=== PATIENT | male | born 1970 | race Caucasian/White ===

== ENCOUNTER 2017-07-28 20:49 | Inpatient (IN) | payer MEDICAID ==
[~2017-07-28] VITALS: Ht 170.2 cm; Wt 71.0 kg
[2017-07-28] MEDS ORDERED: ASPIRIN 81 MG TAB PO STA (21:13)
[2017-07-28] MEDS ORDERED: NITROGLYCERIN 2% 1 GM OINT PKT TD STA (21:13)
[2017-07-28] MEDS ORDERED: morphine 4 MG/ML VIAL IV STA (21:13)
[2017-07-28] MEDS ORDERED: ONDANSETRON 4 MG INJ IV STA (21:13)
[2017-07-28] MEDS ORDERED: SOD CHLORIDE 0.9% 1,000 ML IV STA (21:13)
[2017-07-28] MEDS ORDERED: NITROGLYCERIN (SL) 0.4 MG TAB SL PRN (21:30)
[2017-07-28] MEDS ORDERED: LORAZEPAM 2 MG INJ IV ONE (21:30)
[2017-07-28 21:47] LABS: BASOPHILS % 0.3 % (0.0-2.0); EOSINOPHILS % 0.3 % (0.0-7.0); HEMATOCRIT 41.9 % (42.0-52.0); HEMOGLOBIN 14.1 g/dl (14.0-18.0); LYMPHOCYTES # 1.4 10^3/ul (0.8-2.9); LYMPHOCYTES % 12.1 % (15.0-51.0); MEAN CORPUSCULAR HEMOGLOBIN 29.1 pg (29.0-33.0); MEAN CORPUSCULAR HGB CONC 33.7 g/dl (32.0-37.0); MEAN CORPUSCULAR VOLUME 86.4 fl (82.0-101.0); MEAN PLATELET VOLUME 9.2 fl (7.4-10.4); MONOCYTE # 0.5 10^3/ul (0.3-0.9); MONOCYTES % 4.6 % (0.0-11.0); NEUTROPHIL # 9.6 10^3/ul (1.6-7.5); NEUTROPHILS % 82.4 % (39.0-77.0); PLATELET COUNT 370 10^3/UL (140-415); RED BLOOD COUNT 4.85 10^6/ul (4.70-6.10); RED CELL DISTRIBUTION WIDTH 12.7 % (11.5-14.5); WHITE BLOOD COUNT 11.7 10^3/ul (4.8-10.8)
[2017-07-28 22:03] LABS: INR 0.84; PARTIAL THROMBOPLASTIN TIME 25.3 Sec (25.0-35.0); PROTIME 11.5 Sec (12.2-14.2); PT RATIO 0.9
[2017-07-28 22:06] LABS: ALANINE AMINOTRANSFERASE 52 IU/L (13-69); ALBUMIN/GLOBULIN RATIO 1.05; ALKALINE PHOSPHATASE 69 IU/L (42-121); ANION GAP 11 (8-16); ASPARTATE AMINO TRANSFERASE 25 IU/L (15-46); BILIRUBIN,INDIRECT 0.2 mg/dl (0-1.1); BILIRUBIN,TOTAL 0.2 mg/dl (0.2-1.3); BLOOD UREA NITROGEN 13 mg/dl (7-20); CALCIUM 9.5 mg/dl (8.4-10.2); CARBON DIOXIDE 26 mmol/L (21-31); CHLORIDE 105 mmol/L (97-110); GLUCOSE 133 mg/dl (70-220); POTASSIUM 4.1 mmol/L (3.5-5.1); SODIUM 138 mmol/L (135-144); TOTAL PROTEIN 7.8 g/dl (6.1-8.1)
[2017-07-28] MEDS ORDERED: SOD CHLORIDE 0.9% 100 ML ONE (22:11)
[2017-07-28] MEDS ORDERED: IOHEXOL 100 ML ONE (22:11)
[2017-07-28 22:18] LABS: TROPONIN-I < 0.012 ng/ml (0.00-0.12)
--- NOTE | 2017-07-28 22:56 | RADRPT ---
PROCEDURE: XR Chest. CLINICAL INDICATION: Chest pain. TECHNIQUE: Single frontal view. COMPARISON: None. FINDINGS: The lungs are clear. The heart size is normal. There is no pleural effusion. There is no pneumothorax. IMPRESSION: 1. Normal chest radiograph. RPTAT: QQ .Davy Kearney MD, Date Time Electronically viewed and signed by .Davy Kearney MD, on 07/28/2017 22:55 .R/
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
[2017-07-29] VITALS (10 sets, daily range): BP systolic 96–119; BP diastolic 54–71; PULSE 63–85; RESP 16–21; Ht 170.2 cm; Wt 71.0 kg
[2017-07-29] MEDS ORDERED: ONDANSETRON 4 MG INJ IV PRN
[2017-07-29] MEDS ORDERED: NACL 0.9% 3 ML SYG IV SCH
[2017-07-29] MEDS ORDERED: morphine 2 MG INJ IV PRN
[2017-07-29] MEDS ORDERED: BISACODYL (EC) 5 MG TAB PO PRN
[2017-07-29] MEDS ORDERED: NITROGLYCERIN (SL) 0.4 MG TAB SL PRN
[2017-07-29] MEDS ORDERED: ACETAMINOPHEN 325 MG TAB PO PRN ×2
[2017-07-29] MEDS ORDERED: DOCUSATE SODIUM 100 MG CAP PO PRN
[2017-07-29] MEDS ORDERED: KETOROLAC 30 MG INJ IV STA (01:36)
[2017-07-29] MEDS: FAMOTIDINE 20 MG TAB PO SCH ×2 (01:41→10:13)
[2017-07-29] MEDS ORDERED: CYCLOBENZAPRINE 10 MG TAB PO ONE (02:00)
[2017-07-29] MEDS ORDERED: AL HYDROX/MG HYDROX/SIMETH 30 ML CUP PO ONE (02:00)
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
[2017-07-29 04:23] LABS: BASOPHILS % 0.3 % (0.0-2.0); EOSINOPHILS # 0.1 10^3/ul (0.0-0.5); EOSINOPHILS % 0.9 % (0.0-7.0); HEMATOCRIT 36.6 % (42.0-52.0); HEMOGLOBIN 11.9 g/dl (14.0-18.0); LYMPHOCYTES # 2.4 10^3/ul (0.8-2.9); LYMPHOCYTES % 25.9 % (15.0-51.0); MEAN CORPUSCULAR HEMOGLOBIN 28.7 pg (29.0-33.0); MEAN CORPUSCULAR HGB CONC 32.5 g/dl (32.0-37.0); MEAN CORPUSCULAR VOLUME 88.4 fl (82.0-101.0); MEAN PLATELET VOLUME 8.9 fl (7.4-10.4); MONOCYTE # 0.7 10^3/ul (0.3-0.9); MONOCYTES % 7.7 % (0.0-11.0); PLATELET COUNT 305 10^3/UL (140-415); RED BLOOD COUNT 4.14 10^6/ul (4.70-6.10); WHITE BLOOD COUNT 9.2 10^3/ul (4.8-10.8)
[2017-07-29 04:50] LABS: ALBUMIN 2.9 g/dl (3.3-4.9); ALBUMIN/GLOBULIN RATIO 0.96; BILIRUBIN,INDIRECT 0.2 mg/dl (0-1.1); BILIRUBIN,TOTAL 0.2 mg/dl (0.2-1.3); CALCIUM 8.7 mg/dl (8.4-10.2); CHOL/HDL RATIO 2.9 RATIO; CREATINE KINASE 57 IU/L (23-200); CREATININE 0.7 mg/dl (0.61-1.24); POTASSIUM 4.1 mmol/L (3.5-5.1); TOTAL PROTEIN 5.9 g/dl (6.1-8.1)
[2017-07-29 05:12] LABS: CK-MB 0.43 ng/ml (0.0-2.4); TROPONIN-I < 0.012 ng/ml (0.00-0.12)
[2017-07-29 05:18] LABS: THYROID STIMULATING HORMONE 0.351 MIU/L (0.465-4.680)
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
[2017-07-29] MEDS ORDERED: KETOROLAC 30 MG INJ IV PRN (11:00)
--- NOTE | 2017-07-29 11:39 | RADRPT ---
Echocardiogram Report Patient Name: RENALDO SCOTT Gender: Male Date: 1970 Study Date: 29-Jul-2017 Medical Records Receptionist: Raulito [facility] Location: [id number] Ref. Physician: MERLE PERDUE Quality: Technically Difficult Study Procedures: Transthoracic echocardiogram with complete 2D, M-Mode, and doppler examination. Indications: Chest Pain. 2D/M Mode Doppler Measurement Value Normal Ranges Measurement Value Normal Ranges LVIDd 2D 4.0 3.5 - 5.6 cm AV Peak Karan 1.3 m/sec LVIDs 2D 2.6 2.1 - 4.1 cm AV Peak PG 7.0 mmHg FS 2D 35.1 % LVOT Peak Karan 1.3 m/sec LVPWd 2D 1.3 0.6 - 1.1 cm LVOT Peak PG 6.0 mmHg IVSd 2D 1.3 0.6 - 1.1 cm MV E Peak Karan 0.7 m/sec IVS/LVPW 2D 1.0 MV A Peak Karan 0.5 m/sec AoR Diam 2D 2.5 2.0 - 3.7 cm MV E/A 1.2 LA/Ao 2D 1 0 - 1 MV Decel Time 155 msec EDV 2D 65.9 cm3 MV E/A 1.2 ESV 2D 18.0 cm3 TR Peak Karan 2.7 m/sec LA Dimen 2D 3.3 2.3 - 4.0 cm TR Peak PG 28.0 mmHg RVSP 36.0 mmHg Findings Left Ventricle: Normal left ventricular systolic function. Normal left ventricular cavity size. Normal left ventricular wall thickness. Ejection fraction is visually estimated at 65 %. Tissue Doppler/Mitral Doppler indices are within normal limits. Right Ventricle: Normal right ventricular size. Normal right ventricular systolic function. Left Atrium: The left atrium is normal in size. Right Atrium: The right atrium is normal in size. Mitral Valve: Normal appearance and function of the mitral valve with trace physiologic regurgitation. Trace mitral regurgitation. Aortic Valve: Normal appearance of the aortic valve. No significant aortic stenosis or insufficiency. Tricuspid Valve: Normal appearance of the tricuspid valve. Estimated peak PA systolic pressure 31 mmHg. There is trace to mild tricuspid regurgitation. Pulmonic Valve: Pulmonic valve not well visualized. There is trace pulmonic regurgitation. Pericardium: Normal pericardium with no significant pericardial effusion. Aorta: Normal aortic root. IVC: Normal size and normal respiratory collapse consistent with normal right atrial pressure. Conclusions 1.Normal size and normal respiratory collapse consistent with normal right atrial pressure. Dilated IVC with respiratory collapse consistent with elevated right atrial pressure. 2.Normal left ventricular systolic function. Normal left ventricular cavity size. Normal left ventricular wall thickness. Ejection fraction is visually estimated at 65 %. Tissue Doppler/Mitral Doppler indices are within normal limits. 3.No significant valvular stenosis or regurgitation seen. 4.Estimated peak PA systolic pressure 31 mmHg based on RA pressure of 3 mmHg. Electronically Signed By: Jadiel Partida 29-Jul-2017 11:38:02 -0700 Patient Name: RENALDO SCOTT Study Date: 29-Jul-2017 [id number]
[2017-07-29 11:40] LABS: CREATINE KINASE 48 IU/L (23-200)
[2017-07-29 12:01] LABS: CK-MB 0.24 ng/ml (0.0-2.4); TROPONIN-I < 0.012 ng/ml (0.00-0.12)
[2017-07-29] MEDS ORDERED: ACET325T40 PO (17:04)
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
--- NOTE | 2017-07-29 17:05 | PDOCDIS ---
Discharge Instructions DIAGNOSIS Discharge Diagnosis costochondritis, pulmonary hypertension, subclinical HYPERthyroid CONDITION Patient Condition: Stable FOLLOW UP/APPOINTMENTS Follow-up Plan PCP tomorrow MALLORY TERESA MD Jul 29, 2017 17:05
== END 2017-07-29 18:45 | disposition home or self-care (01) | DRG 206 ==
LOC: E/R 20:49 → TEL 23:31
PROVIDERS: ADMIT Family Medicine; ATTEND Family Medicine
DX: M94.0 Chondrocostal junction syndrome [Tietze] (principal); I27.20 Pulmonary hypertension, unspecified; N28.1 Cyst of kidney, acquired; D72.829 Elevated white blood cell count, unspecified
CPT/HCPCS: 36415; 71010; 71275; 80053; 80061; 82550; 82553; 83036; 84436; 84439; 84443; 84484; 85025; 85610; 85730; 93005; 93306; 96374; 96375; J1885; J2060; J2270; J2405; J7030; Q9967

== ENCOUNTER 2017-08-21 09:47 | Emergency (ER) | payer MEDICAID ==
[~2017-08-21] VITALS: Wt 71.2 kg
[~2017-08-21 09:47] MED LIST: ACET325T40 PO
[2017-08-21] MEDS ORDERED: ASPIRIN 325 MG TAB PO STA (10:08)
--- NOTE | 2017-08-21 10:29 | RADRPT ---
PROCEDURE: XR Chest. CLINICAL INDICATION: chest pain TECHNIQUE: Single frontal view of the chest was obtained COMPARISON: None FINDINGS: The heart and mediastinum are within normal limits. The lungs are clear. There is no pleural effusion or pneumothorax. RPTAT: AA IMPRESSION: No acute disease. .Chidi Schroeder MD, Date Time Electronically viewed and signed by .Chidi Schroeder MD, MD on 08/21/2017 10:29 .S/
[2017-08-21 10:44] LABS: BASOPHILS % 0.2 % (0.0-2.0); EOSINOPHILS # 0.1 10^3/ul (0.0-0.5); EOSINOPHILS % 0.9 % (0.0-7.0); HEMATOCRIT 42.6 % (42.0-52.0); HEMOGLOBIN 14.4 g/dl (14.0-18.0); LYMPHOCYTES # 1.5 10^3/ul (0.8-2.9); LYMPHOCYTES % 18.6 % (15.0-51.0); MEAN CORPUSCULAR HEMOGLOBIN 28.8 pg (29.0-33.0); MEAN CORPUSCULAR HGB CONC 33.8 g/dl (32.0-37.0); MEAN CORPUSCULAR VOLUME 85.2 fl (82.0-101.0); MONOCYTE # 0.5 10^3/ul (0.3-0.9); MONOCYTES % 6.2 % (0.0-11.0); NEUTROPHIL # 6.1 10^3/ul (1.6-7.5); NEUTROPHILS % 73.7 % (39.0-77.0); PLATELET COUNT 319 10^3/UL (140-415); RED CELL DISTRIBUTION WIDTH 12.4 % (11.5-14.5); WHITE BLOOD COUNT 8.2 10^3/ul (4.8-10.8)
[2017-08-21 11:01] LABS: ANION GAP 13 (8-16); BLOOD UREA NITROGEN 9 mg/dl (7-20); CALCIUM 9.5 mg/dl (8.4-10.2); CARBON DIOXIDE 28 mmol/L (21-31); CHLORIDE 106 mmol/L (97-110); CREATININE 0.76 mg/dl (0.61-1.24); GLUCOSE 120 mg/dl (70-220); POTASSIUM 4.2 mmol/L (3.5-5.1); SODIUM 143 mmol/L (135-144)
[2017-08-21 11:14] LABS: B-TYPE NATRIURETIC PEPTIDE 22 PG/ML (0-125)
[2017-08-21 11:19] LABS: TROPONIN-I < 0.012 ng/ml (0.00-0.12)
[2017-08-21] MEDS ORDERED: SOD CHLORIDE 0.9% 100 ML ONE (11:56)
[2017-08-21] MEDS ORDERED: IOHEXOL 300MG/ML 150 ML BTL ONE (11:56)
--- NOTE | 2017-08-21 12:18 | RADRPT ---
PROCEDURE: CT Chest with contrast. CLINICAL INDICATION: Chest pain and bloody sputum TECHNIQUE: CT scan of the chest with contrast was performed on the [employer] CT scanner. The pat ient was scanned following the uncomplicated intravenous administration of 100 cc of Isovue 300 intr avenous contrast. Coronal and sagittal reformatted images were obtained from the axial source images . One or more of the following dose reduction techniques were used: - Automated exposure control. - Adjustment of the mA and/or kV according to patient size. Use of iterative reconstruction technique. DLP 420.5 mGycm CTDIvol 10.5 mGy COMPARISON: 07/28/2017 FINDINGS: There is no lung consolidation or pleural effusion or pneumothorax. The airways are patent. There is no suspicious nodule or mass. Vascular structures of the thorax are unremarkable. There are no enlarged axillary or mediastinal l ymph nodes. There is no acute upper abdominal abnormality. Stable appearance of a nonenhancing right upper pole renal cyst with layering calcifications within it. There is a fecal filled colon again present. Dege nerative changes are seen within the thoracic spine and shoulders with no acute osseous abnormality. IMPRESSION: No acute pulmonary process. Nonenhancing right upper pole renal cyst is present with layering calcifications are stable. Fecal filled colon. RPTAT: AA .Erasmo Fairchild MD, Date Time Electronically viewed and signed by .Erasmo Fairchild MD, MD on 08/21/2017 12:18 .J/
[2017-08-21] MEDS ORDERED: KETOROLAC 30 MG INJ IV STA (12:33)
[2017-08-21] MEDS ORDERED: MAGN296S40 PO (13:15)
[2017-08-21] MEDS ORDERED: NAPR-688 PO (13:15)
[2017-08-21] MEDS ORDERED: POLY17PO6 PO (13:15)
[2017-08-21 13:23] VITALS: BP 138/94; PULSE 82; RESP 18
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
== END 2017-08-21 13:25 | disposition home or self-care (01) ==
LOC: E/R 09:47
DX: M94.0 Chondrocostal junction syndrome [Tietze] (principal); K59.00 Constipation, unspecified; Z87.891 Personal history of nicotine dependence
CPT/HCPCS: 36415; 71010; 71260; 80048; 83880; 84484; 85025; 93005; Q9967; Z7502; Z7610